=== PATIENT | female | born 1990 | race Caucasian/White ===

== ENCOUNTER 2016-06-29 11:55 | Inpatient (IN) | payer BC, MEDICAID ==
[2016-06-29 12:48] VITALS: BMI 25.0
[2016-06-29] MEDS ORDERED: LR 1,000 ML IV ONE (12:58)
[2016-06-29] MEDS ORDERED: OXYTOCIN 1,000 ML IV ONE (12:58)
[2016-06-29] MEDS ORDERED: LIDOCAINE 1% 30 ML VIAL (PRESERVATIVE FREE) ONE (12:58)
[2016-06-29] MEDS ORDERED: FLEET 4.5 OZ ENEMA PR ONE (13:30)
[2016-06-29] MEDS ORDERED: LR 500 ML IV PRN (13:30)
[2016-06-29 13:50] LABS: AUTOMATED BASOPHIL 0.6 % (0-2); AUTOMATED EOSINOPHIL 0.4 % (0-5); AUTOMATED LYMPH 17.2 % (17-44); AUTOMATED MONOCYTE 5.3 % (3-10); AUTOMATED NEUTROPHIL 76.5 % (45-76); MPV 8.5 fL (7.4-10.4)
[2016-06-29] MEDS ORDERED: LR 1,000 ML IV SCH (14:00)
[2016-06-29] MEDS ORDERED: Vaccine Screening Complete SCH (14:00)
--- NOTE | 2016-06-29 14:45 | HISTPHYS ---
- HISTORY OF PRESENT ILLNESS Age: 25 Estimated Due Date: 07/20/16 Gestational Age: 37 : 1 Para: 0 Patient Presents to:: Labor & Delivery Presents for:: Leaking Fluid (since 06/24.) Current : Diabetes (Diet controlled), GBS + - REVIEW OF SYSTEMS Reports/Denies: Reports: Contractions (Mild and irregular), Movement ( normal), Leaking Fluid. Denies: Complaints, Vaginal Bleeding, Fever Pain: Reports: None - ALLERGIES Allergies Allergy/AdvReac Type Severity Reaction Status Date / Time Sulfa (Sulfonamide Allergy Hives* Verified 06/24/16 20:26 Antibiotics) - PAST MEDICAL HISTORY Reports: No Significant History - PAST SURGICAL HISTORY Reports: None - FAMILY HISTORY Family History: Noncontributory - SOCIAL HISTORY Smoking Status: Never smoker Social History: Denies: Alcohol Use Marital Status: - GENITOURINARY HISTORY HX : 1 Para: 0 - PHYSICAL EXAM Vital Signs:: Temperature: 98.4 F (06/29/16 12:40) HR: 77 (06/29/16 12:40) RR: 16 (06/29/16 12:40) BP: 120/78 (06/29/16 12:40) Pulse Ox: () GENERAL: Alert, Oriented, No Acute Distress ABDOMEN: Gravid, Hyper-active BS, Non-Tender, Soft Fundal Height (cm): 37 GENITOURINARY: Normal, Discharge. negative: Lesions, Mass, Rash, Swelling MUSCULOSKELETAL: Normal. negative: Atrophy EXTERMITIES: Moves All Extremeties. negative: Pain/Tenderness Dilation (cm): 0.5 Effacement (%): 50 Station: -4 Heart Rate: 150 Reactive, Moderate Variability. negative: Decelerations Contractions: Irregular Membranes: Pooling (clear) Amniotic Fluid: Clear - ASSESSMENT (ACTIVE PROBLEMS) (1) PROM (premature rupture of membranes) Acute O42.90 - ZEHRA ROM, 7TH0 BETW RUPT & ONST LABR, UNSP WEEKS OF GEST - PLAN Admit, Induction of Labor (Pt told the indications for augmentation of labor as well as the risks including hyperstimulation, distress and emergent c- section)
[2016-06-29] MEDS ORDERED: AMPICILLIN 2 GM in NS 100 ML IV ONE (16:00)
[2016-06-29] MEDS: AMPICILLIN 1 GM in NS 100 ML IV SCH ×2 (19:05→23:15)
[2016-06-29] MEDS: BUTORPHANOL 1 MG/ML VIAL IV PRN ×2 (20:06→22:00)
[2016-06-29] MEDS ORDERED: RANITIDINE 150 MG TAB PO PRN (23:50)
[2016-06-29] MEDS ORDERED: D5W/LR 1,000 ML IV SCH (23:54)
[2016-06-30] MEDS ORDERED: Fentanyl/Bupivacaine 100 ML EPI ONE (00:51)
[2016-06-30] MEDS ORDERED: ONDANSETRON HCL 4 MG/2 ML VIAL IV PRN (01:26)
[2016-06-30] MEDS ORDERED: LR 500 ML IV ONE (01:26)
[2016-06-30] MEDS ORDERED: LR 500 ML IV PRN (01:26)
[2016-06-30] MEDS ORDERED: EPHEDrine 50 MG/ML VIAL IV PRN (01:26)
[2016-06-30] MEDS ORDERED: METOCLOPRAMIDE 10 MG/2 ML VIAL IV PRN (01:26)
[2016-06-30] MEDS ORDERED: DIPHENHYDRAMINE 50 MG/ML VIAL IV PRN (01:26)
[2016-06-30] MEDS ORDERED: NALOXONE 0.4 MG/ML AMPULE IV PRN (01:26)
--- NOTE | 2016-06-30 01:28 | HIM.ANES ---
Anesthesia Evaluation & Plan Diagnoses: labor pain Consented Procedure: labor epidural Surgeon:: Benigno Villatoro - Focused Review of Systems Cardiac History: No: Hx Cardiac Disorders HEENT: No: Other HEENT Problems Respiratory: Yes: Hx Asthma Gastrointestinal: No: Hx Gastrointestinal Disorders Neurological/Musculoskeletal: No: Hx Neurological Disorders Psychological: No Hx Mental/Emotional Disorders Endocrine: Yes: Hx Diet Controlled Diabetes (gestational dm) Smoking Status: Never smoker Past Social History: Denies: Alcohol Use - Focused Physical Exam NPO since: after Midnight Neck: Full Range of Motion Cardiovascular/Chest: Normal (RRR no mumurs or rubs.) Respiratory: Lungs clear. negative: Rhonchi, Wheezing Other: Problem List Problem Status Onset PROM (premature rupture of membranes) Acute CBC/BMP/Other 06/29/16 13:35 Allergies Allergy/AdvReac Type Severity Reaction Status Date / Time Sulfa (Sulfonamide Allergy Hives* Verified 06/24/16 20:26 Antibiotics) Home Medications Medication Instructions Recorded Last Taken Type Vits W-Ca,Fe,FA(<1Mg) 1 tab PO DAILY 06/24/16 06/28/16 18:00 History [] Ranitidine HCl [Zantac 75] 1 tab PO DAILY PRN 06/24/16 06/29/16 History 0900 Height and Weight Patient's height 5 ft 5 in Patient's weight 79.832 kg BMI 25.0 Vital Signs Temperature 97.9 F 06/30/16 00:47 Pulse Rate 77 06/29/16 12:40 Respiratory Rate 16 06/29/16 12:40 Blood Pressure 120/78 06/29/16 12:40 Pulse Oxygen Saturation - Anesthetic Plan Anesthesia Type: Epidural ASA Class: 2 -: I have examined this patient and reviewed the medical record. The patient has been assessed prior to anesthesia. Risks and benefits of anesthesia and anesthetic technique options have been discussed and all questions answered. The patient accepts the risk and desires me to proceed with the planned anesthetic.
--- NOTE | 2016-06-30 01:29 | HIM.ANESP ---
Procedure Note DATE OF PROCEDURE: 06/30/16 PREOPERATIVE DIAGNOSIS: Labor Pain Control. POSTOPERATIVE DIAGNOSIS: Same PROCEDURE: Epidural PERFORMING PROVIDER: Virginia Fraga MD DIAGNOSIS: Labor SURGEON: [place] TIME OUT: 107 Anesthesia START time: 107 Anesthesia STOP (Delivery) Time : 07:45 MEDICATIONS: INF Bupivacaine 0.125% + Fentanyl 3mcg/ml ml/hr NEEDLE: Tuohy 17G STERILE BARRIERS: sterile x 3, mask, sterile gloves. APPROACH: Midline ATTEMPTS:1 COMPLICATIONS: None. BLOOD LOSS: 0 cubic centimeters. PROCEDURE FINDINGS AND TECHNIQUE: At the request of the patient and industrial methods consultant , an Epidural Block was performed for labor pain relief. Epidural Risk, benefits and alternatives of the procedure were explained and questions answered. Informed consent was obtained, confirmed with patient and on chart. Time out was performed. Contraction, Pulse oximetry, EKG and BP monitoring were established. The patient is a sitting position and lumbar area was prepped and draped in a sterile manner. Skin anesthesia was obtained with 1% Xylocaine infiltration. The Epidural was done in the usual manner. A Tuohy needle was inserted with loss of resistance to NS @ 6cm. Local anesthetic was injected in incremental volumes with negative aspirations throughout, Bolus dose: Lidocaine 1 % 5 cc. There was no pain on injection. Epidural catheter threaded 5 cm into epidural space. Test dose Lidocaine 1.5 % with epinephrine 1:200,000, 3 ml via epidural catheter. Negative test dose. SaO2 98% EKG SR Loading Dose 0 mcg/ml Fentanyl Infusing Dose Bupivacaine 0.125% + Fentanyl 3mcg/ml ml/hr See Watch Child Record (chart) Patient tolerated the procedure well without complications.
[2016-06-30] MEDS ORDERED: Fentanyl/Bupivacaine 100 ML EPI SCH (02:00)
[2016-06-30] MEDS: AMPICILLIN 1 GM in NS 100 ML IV SCH (03:14)
[2016-06-30] MEDS ORDERED: OXYTOCIN 1,000 ML IV ONE ×3 (06:04→08:10)
--- NOTE | 2016-06-30 07:52 | OBDELNOTE ---
Delivery Note - Problem/Diagnosis (1) PROM (premature rupture of membranes) Status: Acute (2) Gestational diabetes mellitus Status: Acute (3) Vaginal delivery Status: Acute - Admitting Diagnosis Reason for Visit: Leaking Fluid Admission Date: 06/29/16 Admission time: 12:16 Gestational Age: 37 - Procedures Procedure(s): None Labor Anesthesia/Analgesia: IV Medication, Epidural Date: 06/30/16 Time: 07:45 Spontaneous Vaginal Delivery Presentation: Vertex Episiotomy: Left Mediolateral Laceration: None Repair Agent: [id number] Chromic EBL: 400 Fluid: Clear Placenta: Spontaneous Description: Normal - Procedures Procedures: None - Infant Data Order: Valdez Infant Sex: Male Weight: 3.033 kg (1min): 9 (5min): 9 Feeding Plans for : Breast Plans Circumcision: Yes [place] Complications: No Complications to:: LDRP/Mother's Room - /Operative Complications /Op Complications: None Discharge Planning - REASON FOR ADMISSION Patient Presents to:: Labor & Delivery Reason for Visit: Leaking Fluid (since 06/24.) - DISCHARGE INSTRUCTIONS Prescriptions: Hydrocodone Bit/Acetaminophen [Lortab 5/325] 1 - 2 tab PO Q4H PRN #30 tab PRN Reason: Pain Ibuprofen Tablet [Motrin] 800 mg PO Q6-8H PRN #30 tab PRN Reason: Pain
--- NOTE | 2016-06-30 07:53 | PCM.DCS92 ---
<Benigno Villatoro - Last Filed: 06/30/16 07:52> - Primary/Secondary Discharge Diagnoses (1) PROM (premature rupture of membranes) Acute O42.90 - ZEHRA ROM, 7TH0 BETW RUPT & ONST LABR, UNSP WEEKS OF GEST Present on Admission: Yes onset of labor more than 24 hours following rupture full term O42.12 - Full-term premature rupture of membranes, onset of labor more than 24 hours following rupture (2) Gestational diabetes mellitus Acute O24.419 - GESTATIONAL DIABETES MELLITUS IN , UNSP CONTROL Present on Admission: Yes diet-controlled (3) Vaginal delivery Acute O80 - ENCOUNTER FOR FULL-TERM UNCOMPLICATED DELIVERY Present on Admission: No - HOSPITAL COURSE /Op Complications: None - DISCHARGE INSTRUCTIONS Discharge Disposition: Home Discharge Condition: Good Cognitive Discharge Status: Unimpaired Fuctional Discharge Status: Independent Patient Leaving with Prescriptions?: Yes Prescriptions: Docusate Sodium [Colace] 100 mg PO DAILY PRN #50 capsule PRN Reason: Constipation Hydrocodone Bit/Acetaminophen [Lortab 5/325] 1 - 2 tab PO Q4H PRN #30 tab PRN Reason: Pain Hydrocortisone Acetate [Anusol-Hc] 30 gm RC BID PRN #30 gm PRN Reason: Hemorrhoid Discomfort Ibuprofen Tablet [Motrin] 800 mg PO Q6-8H PRN #30 tab PRN Reason: Pain Forms: Patient Discharge Instructions Referrals: Benigno Villatoro MD [Staff Physician] - 08/11/16 8:30 am - Diet Diet at Discharge: Regular - Activity Activity: No Heavy Lifting, Pelvic Rest, No Driving No Driving for: While using pain medications - Instructions Call Physician for: Severe Abdominal Cramps, Foul Smelling Discharge, Pain/ Redness in Calf/Leg, Soaking Pad in 1 hr, Increased Pain at Wound, Temperature Above 100.4, Drainiage from Wound Additional Instructions: nothing to eat of drink after midnight prior to appointment - Incision Incision, Lacerations, or Tears: Yes - DC Summary Notes Discharge Medications: *See "Discharge Medication List" for a complete list of Home Medications and Discharge Medications.* Obstetric Hospital Course - Admitting Diagnosis Reason for Visit: Leaking Fluid Admission Date: 06/29/16 Admission time: 12:16 Gestational Age: 37 - Procedures Procedure(s): None Labor Anesthesia/Analgesia: IV Medication, Epidural Date: 06/30/16 Time: 07:45 Spontaneous Vaginal Delivery Presentation: Vertex Episiotomy: Left Mediolateral Laceration: None Repair Agent: 3-0 Chromic EBL: 400 Fluid: Clear Placenta: Spontaneous Description: Normal - Procedures Procedures: None - Infant Data Order: Valdez Sex: Male Weight: 3.033 kg (1min): 9 (5min): 9 Feeding Plans for Infant: Breast Plans Circumcision: Yes Complications: No Complications to:: LDRP/Mother's Room - /Operative Complications /Op Complications: None <Jeimy Araujo - Last Filed: 07/02/16 11:07> - Primary/Secondary Discharge Diagnoses (1) care following vaginal delivery Acute Z39.2 - ENCOUNTER FOR ROUTINE FOLLOW-UP - DC Summary Notes Discharge Medications: *See "Discharge Medication List" for a complete list of Home Medications and Discharge Medications.*
[2016-06-30] MEDS ORDERED: MEASLES,MUMPS,RUBELLA VACCINE SQ ONE (08:00)
[2016-06-30] MEDS ORDERED: LANOLIN OINTMENT 0.25 OZ TUBE TOP PRN (08:10)
[2016-06-30] MEDS ORDERED: SODIUM CHLORIDE 0.9% 3 ML FLUSH FLUSH PRN (08:10)
[2016-06-30] MEDS ORDERED: DIBUCAINE OINTMENT 1 OZ TUBE TOP PRN (08:10)
[2016-06-30] MEDS ORDERED: HYDROCORTISONE 25 MG SUPP PR PRN (08:10)
[2016-06-30] MEDS ORDERED: Pharmacy Order Set Alert SCH (08:10)
[2016-06-30] MEDS ORDERED: BISACODYL 10 MG SUPP PR PRN (08:10)
[2016-06-30] MEDS ORDERED: ACETAMINOPHEN 325 MG/TAB TABLET PO PRN (08:10)
[2016-06-30] MEDS: IBUPROFEN 800 MG TAB PO SCH ×3 (08:41→20:20)
[2016-06-30] MEDS ORDERED: Vaccine Screening Complete SCH (09:00)
[2016-06-30] MEDS: OXYCODONE HCL 5 MG TABLET PO PRN ×2 (10:54→19:20)
--- NOTE | 2016-06-30 13:24 | SC.ANESPOS ---
Post-Anesthesia Note LOC: Fully Awake Post-Anesthesia Assessment: Awake, Returned to Baseline, Hemodynamically Stable , Pain Control Adequate Phase I & II Recovery Complete: Yes Apparent Anesthesia Complication: No : N - Vital Signs Blood Pressure: 127/71 Pulse: 77 Resp Rate: 16 Temp: 99.1 F
[2016-06-30] MEDS ORDERED: LR 1,000 ML IV SCH (14:48)
[2016-06-30] MEDS ORDERED: LIDOCAINE 2% 10 ML (PRESERVATIVE FREE) VIAL INF ONE (15:14)
[2016-06-30] MEDS: SODIUM CHLORIDE 0.9% 3 ML FLUSH FLUSH SCH (18:05)
[2016-06-30] MEDS: Docusate Sodium 100 MG CAP PO SCH (20:20)
[2016-07-01] MEDS: IBUPROFEN 800 MG TAB PO SCH ×4 (04:10→22:42)
[2016-07-01] MEDS ORDERED: RHo(D) IMMUNE GLOBULIN (HUMAN) 300 MCG SYRINGE IM ONE (07:15)
[2016-07-01] MEDS ORDERED: MEASLES,MUMPS,RUBELLA VACCINE SQ ONE (08:00)
--- NOTE | 2016-07-01 10:43 | OBGYNPROG ---
- Subjective Post Day: 1 Reports: Complaints (abdominal pain), Ambulating, Out of Bed, Tolerating Regular Diet, Voiding Freely, Passing Flatus, Moderate Lochia, Well. Denies: Nausea, Vomitting, Chest Pain, Shortness of Breath Pain: Reports: Abdominal patient is trying to not take additional pain medication but feels motrin is not helping her pain entirely - Objective Vital Signs: Last Vital Signs Temp 98 F 07/01/16 05:39 Pulse 79 07/01/16 05:39 Resp 18 07/01/16 05:39 BP 106/65 07/01/16 05:39 Pulse Ox General: Alert, Oriented, No Acute Distress ABDOMEN: Non-Distended, Non-Tender, Soft Fundus: At Umbilicus, Firm Bladder: Voiding & Emptying OBGYN Progress Note Progress Note: Laboratory Results - last 24 hr 06/29/16 07/01/16 13:35 06:30 Hgb 11.4 L D Hct 32.8 L Blood Type O NEGATIVE Antibody Screen Positive - ASSESSMENT (1) care following vaginal delivery Status: Acute Code(s): Z39.2 - ENCOUNTER FOR ROUTINE FOLLOW-UP - PLAN Routine Care encouraged to take additional pain medication if needed
[2016-07-01] MEDS: OXYCODONE HCL 5 MG TABLET PO PRN ×2 (10:46→14:50)
[2016-07-01] MEDS: SODIUM CHLORIDE 0.9% 3 ML FLUSH FLUSH SCH (17:50)
[2016-07-01] MEDS: Docusate Sodium 100 MG CAP PO SCH (22:42)
[2016-07-02 05:41] VITALS: BP 125/75; PULSE 104; TEMP 97.7
[2016-07-02] MEDS: IBUPROFEN 800 MG TAB PO SCH ×2 (05:42→13:46)
--- NOTE | 2016-07-02 11:06 | OBGYNPROG ---
- Subjective Post Day: 2 Reports: Complaints (hemmorroids), Ambulating, Out of Bed, Tolerating Regular Diet, Voiding Freely, Passing Flatus, Moderate Lochia, Well. Denies: Nausea, Vomitting, Chest Pain, Shortness of Breath Pain: Reports: Well Managed, Abdominal - Objective Vital Signs: Last Vital Signs Temp 97.7 F 07/02/16 05:40 Pulse 104 07/02/16 05:40 Resp 18 07/02/16 05:40 BP 125/75 07/02/16 05:40 Pulse Ox General: Alert, Oriented, No Acute Distress ABDOMEN: Non-Distended, Non-Tender, Soft Fundus: U - 1, Firm Lochia: Moderate Bladder: Voiding & Emptying Hemorrhoids: Yes (external, non-thrombosed) OBGYN Progress Note - ASSESSMENT (1) care following vaginal delivery Status: Acute Code(s): Z39.2 - ENCOUNTER FOR ROUTINE FOLLOW-UP - PLAN Routine Care, Discharge Will give hemorrhoid cream rx
== END 2016-07-02 15:15 | disposition home or self-care (01) | DRG 775 ==
LOC: MASU 12:16
PROVIDERS: ADMIT Obstetrics & Gynecology; ATTEND Obstetrics & Gynecology
PROC: 0W8NXZZ Division of Female Perineum, External Approach (ICD-10-PCS; principal; 2016-06-30)
PROC: 10E0XZZ Delivery of Products of Conception, External Approach (ICD-10-PCS; 2016-06-30)
PROC: 3E0S3CZ (ICD-10-PCS; 2016-06-30)
PROC: 3E0234Z Introduction of Serum, Toxoid and Vaccine into Muscle, Percutaneous Approach (ICD-10-PCS; 2016-07-01)
DX: O42.12 Full-term premature rupture of membranes, onset of labor more than 24 hours following rupture (principal); O24.420 Gestational diabetes mellitus in childbirth, diet controlled; Z3A.37 37 weeks gestation of pregnancy; Z37.0 Single live birth; O99.824 Streptococcus B carrier state complicating childbirth; Z23 Encounter for immunization
CPT/HCPCS: 59400; 81002; 82962; 85014; 85018; 85025; 85461; 86592; 86850; 86870; 86900; 86901; 90471; 90707; 96361; 96365; 96366; 96368; 96372; 96375; 96376; J0290; J0595; J2001; J2590; J2790; J3490; J7030